=== PATIENT | male | born 1990 | race Caucasian/White ===

== ENCOUNTER → 2016-12-08 | Outpatient (CLI) | payer OTHER ==
[2016-12-08 15:32] LABS: ESTRADIOL 27.4 PG/ML (<39.8); FOLLICLE STIMULATING HORMONE 1.2 mIU/mL (1.4-18.1); LUTEINIZING HORMONE 2.3 mIU/mL (1.5-9.3)
== END ==
LOC: M SMT 10:05
PROVIDERS: ATTEND Nurse Practitioner Women's Health
DX: E29.1 Testicular hypofunction (principal)

== ENCOUNTER 2017-02-24 13:24 | Emergency (ER) | payer OTHER ==
[~2017-02-24] VITALS: Ht 162.6 cm; Wt 82.6 kg
[2017-02-24] MEDS ORDERED: CLOM50TA2 PO (13:35)
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
[2017-02-24] MEDS ORDERED: NAPR500T PO (15:05)
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
[2017-02-24 15:40] VITALS: BP 142/88
== END 2017-02-24 15:42 | disposition home or self-care (01) ==
LOC: EDBD 13:24 → M ED 15:21
DX: S80.02XA Contusion of left knee, initial encounter (principal); S16.1XXA Strain of muscle, fascia and tendon at neck level, initial encounter; V43.52XA Car driver injured in collision with other type car in traffic accident, initial encounter; Y92.410 Unspecified street and highway as the place of occurrence of the external cause; Y93.89 Activity, other specified; Y99.8 Other external cause status; Z79.899 Other long term (current) drug therapy